=== PATIENT | female | born 1995 | race Caucasian/White ===

== ENCOUNTER 2017-02-03 03:48 | Emergency (ER) | payer MEDICAID ==
[2015-07-05 13:46] VITALS: Ht 149.9 cm; Wt 47.2 kg
[~2017-02-03] VITALS: Ht 149.9 cm; Wt 47.2 kg
[~2017-02-03 03:48] MED LIST: CIPR-260 PO; DOCU-144 PO; HYDR-1189 PO; METR500T8 PO
[2017-02-03] MEDS ORDERED: NACL 0.9% 1,000 ML IV ONE ×2 (03:50→04:00)
[2017-02-03 04:00] VITALS: BP 107/61; PULSE 70; RESP 18; TEMP 98.7; O2SAT 98
[2017-02-03] MEDS ORDERED: ONDANSETRON HCL 4 MG/2 ML VIAL IVP ONE (04:00)
--- NOTE | 2017-02-03 04:00 | NUR ---
Patient to ER bed 6 to gown for evaluation. Side rails up. Report given to CESILIA Villalba.
[2017-02-03 04:17] LABS: RED BLOOD CELL COUNT(AUTO) 4.43 MIL/uL (4.2-6.2)
[2017-02-03 04:18] LABS: HEMATOCRIT 37.9 % (36-48); HEMOGLOBIN 12.9 g/dL (12.0-16.0); MEAN CORPUSCULAR HEMOGLOBIN 29 pg (27-31); MEAN CORPUSCULAR HGB CONC 34 % (32-36); MEAN CORPUSCULAR VOLUME 86 fL (79.0-98.0); NEUTROPHILS % (AUTO) 70.4 % (40.0-70.0); PLATELET COUNT (AUTO) 256 K/uL (130-430); RED CELL DISTRIBUTION WIDTH 12.3 % (9.0-15.0)
[2017-02-03 04:19] LABS: BASOPHILS # (AUTO) 0.2 K/uL (0.0-0.2); BASOPHILS % (AUTO) 1.6 % (0.0-2.0); EOSINOPHILS # (AUTO) 0.2 K/uL (0.0-0.4); EOSINOPHILS % (AUTO) 1.8 % (0.0-4.0); LYMPHOCYTES # (AUTO) 2.1 K/uL (1.0-5.5); LYMPHOCYTES % (AUTO) 22.1 % (20.5-51.5); MONOCYTES # (AUTO) 0.4 K/uL (0.0-1.0); MONOCYTES % (AUTO) 4.1 % (1.7-9.3)
--- NOTE | 2017-02-03 04:27 | NUR ---
# 22 gauge angiocath placed to left AC. Use of asceptic technique. Opsite placed over site. Blood return noted. Blood for lab drawn from site. Flushed with 10 cc of normal saline. No evidence of infiltration noted. Patient tolerated well.
--- NOTE | 2017-02-03 04:27 | NUR ---
ER at bedside examining patient.
[2017-02-03] MEDS ORDERED: PANTOPRAZOLE SODIUM 40 MG/VIAL (PROTONIX) IVP ONE (04:30)
[2017-02-03 04:31] LABS: CALCIUM 9.3 mg/dL (8.4-11.0); CREATININE 0.78 mg/dL (0.55-1.30); POTASSIUM 3.3 mmol/L (3.5-5.1)
[2017-02-03 04:56] LABS: ALBUMIN 4.6 g/dL (3.4-4.8); TOTAL BILIRUBIN 0.8 mg/dL (0.0-1.0); TOTAL PROTEIN, SERUM 8.5 g/dL (6.4-8.3)
--- NOTE | 2017-02-03 05:00 | NUR ---
Pt awake alert oriented x 4. Clear speech. Complain of nausea vomiting x 1 week, got worse x 2 hours. Has been taking medication. Pt 6 weeks gestation. Denied any vaginal bleeding. will continue to monitor Addendum: 02/03/17 at 0528 by RICCO Correction: Pt was assessed at [id number]
--- NOTE | 2017-02-03 06:21 | NUR ---
Patient given written and verbal discharge instructions and verbalizes understanding. ER MD discussed with patient the results and treatment provided. Patient in stable condition. ID arm band removed. IV catheter removed intact and dressing applied, no active bleeding. Rx of zofran given. Patient educated on pain management and to follow up with PMD. Pain Scale 0/10. Opportunity for questions provided and answered.
== END 2017-02-03 06:21 | disposition home or self-care (01) ==
LOC: SED 03:48
DX: O21.0 Mild hyperemesis gravidarum (principal); K22.6 Gastro-esophageal laceration-hemorrhage syndrome; Z3A.01 Less than 8 weeks gestation of pregnancy
CPT/HCPCS: 36415; 76805; 80053; 84702; 85025; 86901; 96361; 96374; 96375; 99285; C9113; J2405; J7030

== ENCOUNTER 2017-02-14 07:25 | Emergency (ER) | payer MEDICAID ==
[2015-07-05 13:46] VITALS: Ht 149.9 cm; Wt 44.9 kg
[~2017-02-14] VITALS: Ht 149.9 cm; Wt 44.9 kg
--- NOTE | 2017-02-14 07:28 | NUR ---
Pt to bed 7 to gown for evaluation.
[2017-02-14 07:30] VITALS: BP 109/64; PULSE 90; RESP 16; TEMP 97.9; O2SAT 98
--- NOTE | 2017-02-14 07:30 | NUR ---
Stable condition, alert and oriented x4, pt states that she is 8 weeks and has been having intermittent vomiting for about 2 weeks. Pt states that last night she saw dark brown discoloration in emesis 2x and 1x bright red discoloration in emesis this AM. Pt denies vaginal bleeding, abdominal cramping/pain, dizziness/feeling faint. No other complaints/injuries per pt or noted.
--- NOTE | 2017-02-14 07:35 | NUR ---
ER Dr. Loza at bedside examining patient.
[2017-02-14] MEDS ORDERED: NACL 0.9% 1,000 ML IV ONE (07:38)
[2017-02-14] MEDS ORDERED: PANTOPRAZOLE SODIUM 40 MG/VIAL (PROTONIX) IVP ONE (07:45)
[2017-02-14] MEDS ORDERED: ACETAMINOPHEN 650 MG/20.3 ML UDC PO ONE (07:45)
[2017-02-14] MEDS ORDERED: METOCLOPRAMIDE HCL 10 MG/2 ML VIAL IVP ONE (07:45)
--- NOTE | 2017-02-14 07:50 | NUR ---
pt to ultrasound, stable
[2017-02-14 08:00] LABS: BASOPHILS # (AUTO) 0.1 K/uL (0.0-0.2); BASOPHILS % (AUTO) 0.9 % (0.0-2.0); EOSINOPHILS # (AUTO) 0.1 K/uL (0.0-0.4); EOSINOPHILS % (AUTO) 0.5 % (0.0-4.0); HEMATOCRIT 38.4 % (36-48); HEMOGLOBIN 12.7 g/dL (12.0-16.0); LYMPHOCYTES # (AUTO) 1.2 K/uL (1.0-5.5); LYMPHOCYTES % (AUTO) 9.8 % (20.5-51.5); MEAN CORPUSCULAR HEMOGLOBIN 29 pg (27-31); MEAN CORPUSCULAR HGB CONC 33 % (32-36); MEAN CORPUSCULAR VOLUME 88 fL (79.0-98.0); MONOCYTES # (AUTO) 0.4 K/uL (0.0-1.0); NEUTROPHILS # (AUTO) 10.5 K/uL (1.8-7.7); NEUTROPHILS % (AUTO) 85.8 % (40.0-70.0); PLATELET COUNT (AUTO) 238 K/uL (130-430); RED BLOOD CELL COUNT(AUTO) 4.38 MIL/uL (4.2-6.2); RED CELL DISTRIBUTION WIDTH 12.7 % (9.0-15.0); WHITE BLOOD COUNT (AUTO) 12.3 K/uL (4.8-10.8)
[2017-02-14 08:08] LABS: ALANINE AMINOTRANSFERASE 32 U/L (12-78); ALBUMIN 4.5 g/dL (3.4-4.8); ANION GAP 12 (5-15); ASPARTATE AMINOTRANSFERASE 20 U/L (10-37); CALCIUM 9.7 mg/dL (8.4-11.0); CHLORIDE 99 mmol/L (98-107); CREATININE 0.65 mg/dL (0.55-1.30); GLUCOSE 95 mg/dL (70-99); LIPASE 133 U/L (73-393); POTASSIUM 3.4 mmol/L (3.5-5.1); SODIUM SERUM 135 mmol/L (136-145); TOTAL BILIRUBIN 0.9 mg/dL (0.0-1.0); TOTAL PROTEIN, SERUM 8.8 g/dL (6.4-8.3); UREA NITROGEN, BLOOD 11 mg/dL (8-21)
[2017-02-14 08:40] LABS: BILIRUBIN,URINE NEGATIVE (NEGATIVE); BLOOD, URINE NEGATIVE (NEGATIVE); CLARITY/URINE SL CLOUDY (CLEAR); COLOR,URINE YELLOW (YELLOW); GLUCOSE,URINE NEGATIVE (NEGATIVE); KETONES,URINE 3+ (NEGATIVE); LEUKOCYTE ESTERASE ,URINE TRACE (NEGATIVE); NITRITE, URINE NEGATIVE (NEGATIVE); PROTEIN URINE 1+ (NEGATIVE)
[2017-02-14 08:47] LABS: BACTERIA,URINE MODERATE /HPF (None Seen); RBC,URINE 0-3 /HPF (0-3)
[2017-02-14] MEDS ORDERED: cefTRIAXone 1 GM IVPB PREMIX 50 ML IV ONE (09:15)
[2017-02-14] MEDS ORDERED: ONDANSETRON 4 MG ODT TAB PO ONE (09:30)
[2017-02-14 10:20] VITALS: BP 115/75; PULSE 75; RESP 16; TEMP 98.2; O2SAT 99
--- NOTE | 2017-02-14 10:20 | NUR ---
Patient given written and verbal discharge instructions and verbalizes understanding. ER MD discussed with patient the results and treatment provided. Patient in stable condition. ID arm band removed. IV catheter removed intact and dressing applied, no active bleeding. Rx of Protonix and Reglan given. Patient educated on pain management and to follow up with PMD within 2 days. Opportunity for questions provided and answered.
== END 2017-02-14 10:20 | disposition home or self-care (01) ==
LOC: SED 07:25
DX: O26.891 Other specified pregnancy related conditions, first trimester (principal); K29.70 Gastritis, unspecified, without bleeding; O21.0 Mild hyperemesis gravidarum; Z3A.08 8 weeks gestation of pregnancy
CPT/HCPCS: 36415; 71010; 76801; 80053; 81000; 81025; 83690; 84702; 85025; 85610; 85730; 87086; 96361; 96365; 96375; 99285; C9113; J0696; J2765; J7030; Q0162